=== PATIENT | female | born 1950 | race Two or more races ===

== ENCOUNTER 2021-10-28 20:10 | Emergency (ER) | payer MEDICARE, OTHER ==
[~2021-10-28] VITALS: Ht 167.6 cm; Wt 82.6 kg
--- NOTE | 2021-10-28 21:10 | NUR ---
TO ER BED 3. [place] C/O [place] WITH NAUSEA, AND DIZZY X 5 DAYS, WORSE TODAY. AAOX4. AMBULATORY. CONNECTED TO MONITOR. VVS. NOT IN RESPIRATORY DISTRESS. AWAITING MD ORTEGA
[2021-10-28] MEDS ORDERED: diphenhydrAMINE HCL 50 MG/ML VIAL ONE (21:21)
[2021-10-28] MEDS ORDERED: SUMATRIPTAN SUCCINATE 6 MG/0.5 ML VIAL SQ ONE ×2 (21:21→21:30)
[2021-10-28] MEDS ORDERED: ONDANSETRON HCL/PF 4 MG/2 ML VIAL ONE (21:22)
[2021-10-28] MEDS ORDERED: diphenhydrAMINE HCL 50 MG/ML VIAL IV ONE (21:30)
[2021-10-28] MEDS ORDERED: ONDANSETRON HCL/PF 4 MG/2 ML VIAL IVP ONE (21:30)
[2021-10-28] MEDS ORDERED: IV NS 0.9% 500 ML BAG IV ONE (21:30)
--- NOTE | 2021-10-28 21:33 | NUR ---
IV LINE ESTABLISHED , RAC 18G. BLOOD COLLECTED AND SENT TO LAB
--- NOTE | 2021-10-28 21:39 | NUR ---
PT TAKEN FOR CT SCAN
[2021-10-28 21:45] LABS: BASOPHILS # (AUTO) 0.1 K/uL (0.0-0.2); BASOPHILS % (AUTO) 0.7 % (0.0-2.0); EOSINOPHILS % (AUTO) 1.5 % (0.0-6.0); HEMATOCRIT 37 % (33-45); HEMOGLOBIN 12.3 g/dL (11.5-14.8); LYMPHOCYTES # (AUTO) 2.8 K/uL (0.8-4.8); LYMPHOCYTES % (AUTO) 37.6 % (20.0-44.0); MEAN CORPUSCULAR HGB CONC 33 g/dl (31.0-36.0); MEAN CORPUSCULAR VOLUME 91 fL (82-100); MONOCYTES # (AUTO) 0.5 K/uL (0.1-1.30); MONOCYTES % (AUTO) 6.5 % (2.0-12.0); NEUTROPHILS % (AUTO) 53.7 % (43.0-81.0); PLATELET COUNT (AUTO) 284 K/uL (150-450); RED BLOOD CELL COUNT(AUTO) 4.08 MIL/uL (4.0-5.2); WHITE BLOOD COUNT (AUTO) 7.5 K/uL (4.3-11.0)
[2021-10-28 21:56] LABS: CALCIUM, SERUM 9.4 mg/dL (8.5-10.1); CREATININE 0.7 mg/dL (0.6-1.3); POTASSIUM 3.8 mmol/L (3.5-5.1)
[2021-10-28 22:04] LABS: BILIRUBIN,DIRECT 0.1 mg/dL (0.0-0.2); BILIRUBIN,TOTAL 0.3 mg/dL (0.2-1.0); TOTAL PROTEIN, SERUM 7.8 g/dL (6.4-8.2)
[2021-10-28] MEDS ORDERED: MECL-159 PO (22:12)
--- NOTE | 2021-10-28 22:45 | NUR ---
Patient discharged to home in stable condition. Written and verbal after care instructions given. Patient verbalizes understanding of instruction.
[2021-10-28 22:46] VITALS: BP 145/77
== END 2021-10-28 22:46 | disposition home or self-care (01) ==
LOC: ER 20:34
DX: R51.9 Headache, unspecified (principal); R42 Dizziness and giddiness; I10 Essential (primary) hypertension; E78.00 Pure hypercholesterolemia, unspecified; Z60.2 Problems related to living alone
CPT/HCPCS: 36415; 70450; 80048; 80076; 85025; 85730; 96372; 96374; 96375; 99284; J1200; J2405; J3030; J7040